=== PATIENT | female | born 1990 | race Caucasian/White ===

== ENCOUNTER 2016-12-02 21:16 | Emergency (ER) | payer BC, OTHER ==
[2016-12-02 21:50] VITALS: BP 110/56
--- NOTE | 2016-12-02 22:39 | UC ---
Skin Complaint HPI - HPI Summary HPI Summary: patient developed a red blistery rash on the left side of her neck about 9 days ago, it is itchy and stinging pain. - History of Current Complaint Chief Complaint: UCRash Time Seen by Provider: 12/02/16 22:07 Stated Complaint: SKIN COMPLAINT Hx Obtained From: Patient Hx Last Menstrual Period: spotting 2 wks ago - has nexplanon ?: No Onset/Duration: Sudden Onset, Lasting Days Skin Exposure Onset/Duration: Days Ago Timing: Constant Onset Severity: Moderate Current Severity: Severe Location: Discrete - left side of neck Character: Swelling, Pruritus, Redness, Painful Aggravating: Nothing Alleviating: Nothing - Allergy/Home Medications Allergies/Adverse Reactions: Allergies Allergy/AdvReac Type Severity Reaction Status Date / Time No Known Allergies Allergy Verified 12/02/16 21:21 Home Medications: Home Medications Calcium Carbonate CHEW TAB* [Tums*] 500 mg PO BID PRN 12/02/16 [History Confirmed 12/02/16] Etonogestrel [Nexplanon] 68 mg IMPLANT SEE INSTRUCTIONS 12/02/16 [History Confirmed 12/02/16] Review of Systems Constitutional: Negative Skin: Rash Eyes: Negative ENT: Negative Respiratory: Negative Cardiovascular: Negative Gastrointestinal: Negative Genitourinary: Negative Motor: Negative Neurovascular: Negative Musculoskeletal: Negative Neurological: Negative Psychological: Negative All Other Systems Reviewed And Are Negative: Yes PMH/Surg Hx/FS Hx/Imm Hx Previously Healthy: Yes Endocrine History Of: Reports: Thyroid Disease Denies: Diabetes Cardiovascular History Of: Denies: Cardiac Disorders, Hypertension Respiratory History Of: Reports: Asthma - as a child Denies: COPD GI/ History Of: Denies: Ulcer - Surgical History Surgical History: Yes Surgery Procedure, Year, and Place: [place], tonsilectomy - Family History Known Family History: Positive: Other - mother with arthritis, fibromyalgia, back problems Negative: Hypertension - Social History Alcohol Use: Occasionally Substance Use Type: None Smoking Status (MU): Light Every Day Tobacco Smoker Type: Cigarettes Amount Used/How Often: 6-7 cigarettes daily Physical Exam Triage Information Reviewed: Yes Appearance: Well-Appearing, Well-Nourished, Pain Distress Vital Signs: Initial Vital Signs Temp 98.8 F 12/02/16 21:23 Pulse 72 12/02/16 21:23 Resp 16 12/02/16 21:23 BP 110/56 12/02/16 21:23 Pulse Ox 100 12/02/16 21:23 Vital Signs Reviewed: Yes Eye Exam: Normal ENT Exam: Normal Dental Exam: Normal Neck exam: Normal Neck: Positive: Supple, Nontender, No Lymphadenopathy Respiratory Exam: Normal Respiratory: Positive: Chest non-tender, Lungs clear, Normal breath sounds Cardiovascular Exam: Normal Cardiovascular: Positive: RRR, No Murmur, Pulses Normal Abdominal Exam: Normal Abdomen Description: Positive: Nontender, No Organomegaly, Soft Bowel Sounds: Positive: Present Musculoskeletal Exam: Normal Neurological Exam: Normal Psychological Exam: Normal Skin: Positive: rashes - blistered rash with erythemic base, along the c3 dermatome left side Course/Dx - Course Course Of Treatment: hx obtained, exam performed, meds reviewed, no valtrex given as it has been 9 days, reviewed treatment of symtpoms. - Differential Diagnoses - Skin Complaint Differential Diagnoses: Cellulitis, Contact Dermatitis, Poison Nayely, Poison Luck, Varicella Zoster - Diagnoses Provider Diagnoses: shingles Discharge - Discharge Plan Condition: Stable Disposition: HOME Patient Education Materials: Shingles (ED) Additional Instructions: 1. continue with your cream for itching, 2. keep blisters covered 3. Manage stress and get plenty of rest 4. If symptoms worsen return for evaluation.
== END 2016-12-02 22:50 | disposition home or self-care (01) ==
LOC: UCCORT 21:16
DX: B02.9 Zoster without complications (principal); E07.9 Disorder of thyroid, unspecified; J45.909 Unspecified asthma, uncomplicated; F17.210 Nicotine dependence, cigarettes, uncomplicated
CPT/HCPCS: 99211; G0463